=== PATIENT | female | born 1955 | race Caucasian/White ===

== ENCOUNTER 2024-11-01 13:13 | Outpatient (AMB) | payer MEDICARE, SELFPAY ==
--- NOTE | 2024-11-01 13:16 | A.SPINEOV_ITS ---
Intake Visit Reasons: LBP Intake Note: Ms. Estrella is here today c/o low back pain. [facility] done @ [facility] (brought disc). 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 HPI: This patient has a more than 15 years history of low back pain, bilateral hip pain with the left side is more affected than the right side. The pain radiates from the left hip down to the knee sometimes into the ankle. The symptoms started with back pain and eventually the left leg became involved with walking the symptoms used to be intermittent but now it is constant in varying degrees depending on what activities being performed. She can no longer walk or stand for prolonged period of time. She used to walk 2 miles a day now she can hardly make it to the mailbox before she has to sit down. Leaning forward also improves her symptoms. She had a MILD procedure done in the past without success. Besides the pain, she also has predominantly left-sided proximal leg weakness. Her DEXA scans have been negative for osteopenia or osteoporosis. She saw a spinal surgeon at [facility] who recommended an L4-S1 lumbar fusion. The following conservative treatment options were tried without success antiinflammatories, tylenol, physical therapy, and multiple cortisone shots. 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 . 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 Height 5'2 weight 208 lb. She walks in a flexed position. She is able to reproduce the pain after short period of standing in the office. Motor exam shows a grade 3/5 weakness of the iliopsoas on the left side and a grade 4/5 on the right side. Sensory exam is intact. Reflexes are symmetrically. No pathological reflexes. Gait is undisturbed. Radiological Studies: MRI done at [facility] on 07/03/2024 shows a grade 2 L4-5 spondylolisthesis with associated moderate central spinal stenosis. There is a disc extrusion causing left L4 foraminal stenosis and nerve compression. Finally, there is a left L5-S1 synovial cyst that touches the S1 nerve root. A dynamic x-ray of the lumbar spine shows grade 2 L4-5 spondylolisthesis and no abnormalities for the L5-S1 segment Impression/Plan: This patient is suffering from back pain and neurogenic claudication due to a grade 2 L4-5 spondylolisthesis with associated central spinal stenosis and foraminal stenosis. I do not think that the left synovial cyst is symptomatic. There are no signs of instability of the L5-S1 segment on flexion-extension x-rays and the MRI shows an excellent quality of the L5-S1 disc space. Therefore I would offer her a fusion of the L4-5 segment through an oblique lumbar interbody fusion but I would not include the L5-S1 segment for the above-mentioned reasons. She is tentatively scheduled for 12/19/2024. Thank you for allowing me to participate in your patients care. total time spent was 50 minutes in counseling ,coordination of plan, personal review of imaging, surgical decision making and subsequent plan Frankie Morley MD, PhD Spine Fellowship Trained Neurosurgeon Director, [facility] Orders: Orders XR lumbar spine 4V min Today M43.16 - Spondylolisthesis, lumbar region, M48.062 - Spinal stenosis, lumbar region with neurogenic claudication Coding Level of Care Code New Pt Level 4 (25042) Diagnoses Spondylolisthesis, lumbar region M43.16 Lumbar stenosis with neurogenic claudication M48.062
== END 2024-11-01 14:28 | disposition home or self-care (01) ==
LOC: HO.HNS 13:14
PROVIDERS: PCP Nurse Practitioner Family; Visit Provider Neurological Surgery
DX: M43.16 Spondylolisthesis, lumbar region (principal); M48.062 Spinal stenosis, lumbar region with neurogenic claudication
CPT/HCPCS: 99204

== ENCOUNTER 2024-11-01 13:13 | Outpatient (REF) | payer MEDICARE, SELFPAY ==
--- NOTE | ~2024-11-01 | XR_ITS ---
EXAMINATION: XR LUMBOSACRAL SPINE CLINICAL INFORMATION: M43.16 - Spondylolisthesis, lumbar region COMPARISON: None available. TECHNIQUE: Four views of the lumbosacral spine. FINDINGS: Mild scoliosis. Mildly exaggerated lumbar lordosis. Grade 1 retrolisthesis of L1 on L2 in the neutral position about 4 mm minimally worsens with flexion and extension to about 6 mm. Grade 1 anterolisthesis of L4 on L5 of 8 mm in the neutral position minimally worsens to 10 mm in flexion and extension. Grade 1 anterolisthesis of L5 on S1 of approximately 3 mm with flexion and extension. Moderate compression deformity of inferior endplate of L1 vertebral body, with approximately 50% loss of height. Small marginal osteophytes at multiple levels. Disc space narrowing at L4-L5, and a lesser degree at L1-L2. Sacroiliac joints are intact. XR/XR lumbar spine 4V min IMPRESSION: Minimal worsening of the listhesis at L1-L2, L4-L5 and L5-S1 with flexion/extension as described above. Electronically signed by: Leesa Shearer MD 11/01/2024 02:50 PM EDT
== END 2024-11-01 13:14 | disposition home or self-care (01) ==
LOC: HO.HOSX 13:13
PROVIDERS: PCP Nurse Practitioner Family; Visit Provider Neurological Surgery
DX: M43.16 Spondylolisthesis, lumbar region (principal); M48.062 Spinal stenosis, lumbar region with neurogenic claudication; M54.50 Low back pain, unspecified
CPT/HCPCS: 72110; 99202

== ENCOUNTER → 2024-11-01 13:52 | Outpatient (BNV) | payer MEDICARE, SELFPAY | PROVIDERS: PCP Nurse Practitioner Family; Visit Provider Radiology Body Imaging | DX: M43.16 Spondylolisthesis, lumbar region (principal) | CPT/HCPCS: 72110 ==

== ENCOUNTER → 2024-12-26 11:41 | Outpatient (BNV) | payer MEDICARE, SELFPAY | PROVIDERS: Admitting Provider Neurological Surgery; PCP Nurse Practitioner Family; Visit Provider Internal Medicine | DX: Z13.6 Encounter for screening for cardiovascular disorders (principal); Z01.810 Encounter for preprocedural cardiovascular examination | CPT/HCPCS: 93010 ==

== ENCOUNTER 2025-01-16 05:51 | Inpatient (IN) | payer MEDICARE, SELFPAY ==
--- NOTE | 2024-12-26 | ECG_ITS ---
Test Reason : preop Blood Pressure : */* mmHG Vent. Rate : 77 BPM Atrial Rate : 77 BPM P-R Int : 194 ms QRS Dur : 84 ms QT Int : 386 ms P-R-T Axes : 58 -22 33 degrees QTcB Int : 436 ms Normal sinus rhythm Normal ECG No previous ECGs available Referred By: Lacey Botello Electronically Signed By: ALLYSSA MCCORD
[2024-12-26 10:48] VITALS: BP 113/57; PULSE 77; RESP 16; O2SAT 97; BMI 40.8
--- NOTE | 2024-12-26 10:55 | HO.ANESPROP2 ---
Documented by User: Lacey Botello NP 01/15/25 08:59 HPI - Anesthesia Eval Consult details Narrative: 72 yr old female for L4-5 Oblique Lumbar Interbody Fusion scheduled for 01/16/25, seen in PAT 12/26/24 Medically optimized, low risk of perioperative cardiopulmonary complications at 12/27/24 visit. No recent illness. No CP or SOB with house work, but limited 2/2 back pain. Can have some SOB with carrying laundry basket upstairs that resolves quickly; feels she is deconditioned. SVT: experiences symptoms no more than once monthly that resolve quickly; does not follow with cardiology. On metoprolol. Asthma: well controlled, rare us of albuterol Type 2 DM: A1C 7.1% 10/2024 GERD: well controlled on H2 jenny [facility] Active Problems Active Problems: All Active Problems (Updated 12/26/24 @ 10:27 by Latanya Valle RN) Lumbar stenosis with neurogenic claudication (Acute) Spondylolisthesis, lumbar region (Acute) Past Medical History Medical History Obesity Atopic dermatitis Allergic rhinitis Spinal stenosis of lumbar region CKD (chronic kidney disease) stage 3, GFR 30-59 ml/min Restless leg syndrome Back pain Arthritis Anemia GERD (gastroesophageal reflux disease) Chronic renal insufficiency Weakness Cough On beta jenny at home SVT (supraventricular tachycardia) Hypercholesteremia Diabetes Asthma HTN (hypertension) Family History Family history of problems with anesthesia: No Surgical History Surgical History History of bladder suspension procedure Hx of carpal tunnel repair Hx of bilateral cataract extraction Hx of appendectomy History of epidural steroid injection into lumbar spine Hx of hysterectomy (~1995) Hx of ovarian cystectomy Hx of foot surgery H/O colonoscopy History of Problems with Anesthesia: No Social History Social History Are you a primary home care consultant to a significant other at home: No Do you presently have visiting nurse or other home services: No Patient Tobacco Use Status: Never used Tobacco Use of substances other than those prescribed or required for medical reasons: No Have you been hit, kicked, punched, or otherwise hurt by someone within the past year? If so, by whom?: No Are you DNR?: No Advance Directives: No Advance Directives Information Provided: No Advance Directives on File: No Patient : No : No Poor oral hygiene: Yes Meds Allergies Allergy/AdvReac Type Severity Reaction Status Date / Time acetaminophen (From Percocet) Allergy Insomnia Verified 12/25/24 12:34 cat dander (cats) Allergy Unknown Verified 12/26/24 10:47 diltiazem Allergy Vomiting Verified 12/26/24 10:45 grass pollen Allergy Unknown Verified 12/26/24 10:47 lisinopril Allergy Cough Verified 12/26/24 10:45 mite-Dermatophagoides Allergy Unknown Verified 12/26/24 10:47 farinae, emmanuel (dust mite - [place]) oxycodone (From Percocet) Allergy Insomnia Verified 12/25/24 12:34 pine nut Allergy Anaphylaxis Verified 12/26/24 10:47 sesame seed Allergy Anaphylaxis Verified 12/26/24 10:47 sunflower seed Allergy Anaphylaxis Verified 12/26/24 10:47 tree and shrub pollen Allergy Unknown Verified 12/26/24 10:47 Home Medications ?Medication ?Instructions ?Recorded ?Confirmed ?Last Taken ?Type albuterol sulfate 90 mcg/actuation 1 puff inhalation QID PRN 12/25/24 12/25/24 01/15/25 History aerosol inhaler (Ventolin HFA) Shortness Of Breath Or Wheezing aspirin 81 mg tablet,delayed 81 mg PO DAILY 12/25/24 12/25/24 01/08/25 History release duloxetine 60 mg capsule,delayed 60 mg PO DAILY 12/25/24 12/25/24 01/15/25 History release famotidine 40 mg tablet 40 mg PO DAILY 12/25/24 12/25/24 01/15/25 History ferrous sulfate 325 mg (65 mg 325 mg PO BEDTIME 12/25/24 12/26/24 01/13/25 History iron) tablet (iron) fluticasone 250 mcg-salmeterol 50 1 inh inhalation BID PRN Shortness 12/25/24 12/26/24 01/15/25 History mcg/dose blistr powdr for Of Breath inhalation (Advair Diskus) gabapentin 300 mg capsule 300 mg PO TID 12/25/24 12/25/24 01/15/25 History acetaminophen 500 mg tablet 1,000 mg PO Q6H PRN Pain 12/26/24 12/26/24 01/14/25 History ascorbic acid (vitamin C) 500 mg 500 mg PO DAILY 12/26/24 12/26/24 01/15/25 History tablet (Vitamin C) cholecalciferol (vitamin D3) 25 25 mcg PO BEDTIME 12/26/24 12/26/24 01/15/25 History mcg (1,000 unit) tablet (Vitamin D3) fluticasone propionate 50 1 spray intranasal BID PRN Allergy 12/26/24 12/26/24 01/15/25 History mcg/actuation nasal Symptoms spray,suspension ipratropium bromide 21 mcg (0.03 2 spray intranasal BID PRN Allergy 12/26/24 12/26/24 01/15/25 History %) nasal spray Symptoms irbesartan 150 1 tab PO DAILY 12/26/24 12/26/24 01/15/25 History mg-hydrochlorothiazide 12.5 mg tablet magnesium oxide 400 mg PO BEDTIME 12/26/24 12/26/24 01/15/25 History metformin 500 mg tablet,extended 500 mg PO QPM 12/26/24 12/26/24 01/15/25 History release 24 hr metoprolol succinate 25 mg 25 mg PO BEDTIME 12/26/24 12/26/24 01/15/25 History tablet,extended release 24 hr montelukast 10 mg tablet 10 mg PO BEDTIME 12/26/24 12/26/24 01/15/25 History pravastatin 40 mg tablet 40 mg PO BEDTIME 12/26/24 12/26/24 01/15/25 History gabapentin 100 mg capsule 100 mg PO TID PRN Pain 01/16/25 01/16/25 Unknown History Exam Height,Weight and Vital Signs: Height 5 ft 1 in Weight 98.066 kg Last Vital Signs Pulse 77 12/26/24 10:48 Resp 16 12/26/24 10:48 BP 113/57 L 12/26/24 10:48 Pulse Ox 97 12/26/24 10:48 O2 Del Method Room Air 12/26/24 10:48 Pertinent Lab Results Pertinent Lab Results: Labs done at [facility] 10/2024 A1C CBC Glucose: 113 BUN: 31 Creat 1.3 GFR 43.1 Sodium 141 Potassium 4.9 Calcium 9.4 Narrative Narrative: EKG 12/26/24 Vent. Rate : 77 BPM Atrial Rate : 77 BPM P-R Int : 194 ms QRS Dur : 84 ms QT Int : 386 ms P-R-T Axes : 58 -22 33 degrees QTcB Int : 436 ms Normal sinus rhythm Normal ECG No previous ECGs available Airway Mallampati Class: III TM Dist: >3cm Neck ROM: Full Loose/Missing/Broken Teeth: No Heart: RRR Lungs: CTAB Assessment and Plan Final Anesthetic Review Family History of Problems with Anesthesia: No History of Problems with Anesthesia: No Documented by User: Olvin Landon MD 01/16/25 13:30 [facility] Past Medical History Medical History Obesity Atopic dermatitis Allergic rhinitis Spinal stenosis of lumbar region CKD (chronic kidney disease) stage 3, GFR 30-59 ml/min Restless leg syndrome Back pain Arthritis Anemia GERD (gastroesophageal reflux disease) Chronic renal insufficiency Weakness Cough On beta jenny at home SVT (supraventricular tachycardia) Hypercholesteremia Diabetes Asthma HTN (hypertension) Surgical History Surgical History History of bladder suspension procedure Hx of carpal tunnel repair Hx of bilateral cataract extraction Hx of appendectomy History of epidural steroid injection into lumbar spine Hx of hysterectomy (~1995) Hx of ovarian cystectomy Hx of foot surgery H/O colonoscopy Social History Social History Are you a primary home care consultant to a significant other at home: No Do you presently have visiting nurse or other home services: No Patient Tobacco Use Status: Never used Tobacco Use of substances other than those prescribed or required for medical reasons: No Have you been hit, kicked, punched, or otherwise hurt by someone within the past year? If so, by whom?: No Are you DNR?: No Advance Directives: No Advance Directives Information Provided: No Advance Directives on File: No Patient : No : No Poor oral hygiene: Yes Meds Allergies Allergy/AdvReac Type Severity Reaction Status Date / Time acetaminophen (From Percocet) Allergy Insomnia Verified 12/25/24 12:34 cat dander (cats) Allergy Unknown Verified 12/26/24 10:47 diltiazem Allergy Vomiting Verified 12/26/24 10:45 grass pollen Allergy Unknown Verified 12/26/24 10:47 lisinopril Allergy Cough Verified 12/26/24 10:45 mite-Dermatophagoides Allergy Unknown Verified 12/26/24 10:47 farinae, emmanuel (dust mite - [place]) oxycodone (From Percocet) Allergy Insomnia Verified 12/25/24 12:34 pine nut Allergy Anaphylaxis Verified 12/26/24 10:47 sesame seed Allergy Anaphylaxis Verified 12/26/24 10:47 sunflower seed Allergy Anaphylaxis Verified 12/26/24 10:47 tree and shrub pollen Allergy Unknown Verified 12/26/24 10:47 Home Medications ?Medication ?Instructions ?Recorded ?Confirmed ?Last Taken ?Type albuterol sulfate 90 mcg/actuation 1 puff inhalation QID PRN 12/25/24 12/25/24 01/15/25 History aerosol inhaler (Ventolin HFA) Shortness Of Breath Or Wheezing aspirin 81 mg tablet,delayed 81 mg PO DAILY 12/25/24 12/25/24 01/08/25 History release duloxetine 60 mg capsule,delayed 60 mg PO DAILY 12/25/24 12/25/24 01/15/25 History release famotidine 40 mg tablet 40 mg PO DAILY 12/25/24 12/25/24 01/15/25 History ferrous sulfate 325 mg (65 mg 325 mg PO BEDTIME 12/25/24 12/26/24 01/13/25 History iron) tablet (iron) fluticasone 250 mcg-salmeterol 50 1 inh inhalation BID PRN Shortness 12/25/24 12/26/24 01/15/25 History mcg/dose blistr powdr for Of Breath inhalation (Advair Diskus) gabapentin 300 mg capsule 300 mg PO TID 12/25/24 12/25/24 01/15/25 History acetaminophen 500 mg tablet 1,000 mg PO Q6H PRN Pain 12/26/24 12/26/24 01/14/25 History ascorbic acid (vitamin C) 500 mg 500 mg PO DAILY 12/26/24 12/26/24 01/15/25 History tablet (Vitamin C) cholecalciferol (vitamin D3) 25 25 mcg PO BEDTIME 12/26/24 12/26/24 01/15/25 History mcg (1,000 unit) tablet (Vitamin D3) fluticasone propionate 50 1 spray intranasal BID PRN Allergy 12/26/24 12/26/24 01/15/25 History mcg/actuation nasal Symptoms spray,suspension ipratropium bromide 21 mcg (0.03 2 spray intranasal BID PRN Allergy 12/26/24 12/26/24 01/15/25 History %) nasal spray Symptoms irbesartan 150 1 tab PO DAILY 12/26/24 12/26/24 01/15/25 History mg-hydrochlorothiazide 12.5 mg tablet magnesium oxide 400 mg PO BEDTIME 12/26/24 12/26/24 01/15/25 History metformin 500 mg tablet,extended 500 mg PO QPM 12/26/24 12/26/24 01/15/25 History release 24 hr metoprolol succinate 25 mg 25 mg PO BEDTIME 12/26/24 12/26/24 01/15/25 History tablet,extended release 24 hr montelukast 10 mg tablet 10 mg PO BEDTIME 12/26/24 12/26/24 01/15/25 History pravastatin 40 mg tablet 40 mg PO BEDTIME 12/26/24 12/26/24 01/15/25 History gabapentin 100 mg capsule 100 mg PO TID PRN Pain 01/16/25 01/16/25 Unknown History Assessment and Plan Assessment Anesthesia Assessment: Anesthesia Plan Discussed and Chart Reviewed Final Anesthetic Review NPO: Yes ASA Class: III Final Preanesthetic Review: No Changes in Pt Med Stat, Meds/Allgs Chart Reviewed, Consent Obtained/Reviewed and Anes Risks/Benef Reviewed Patient Risk: Intermediate Procedure Risk: Low Anesthetic Plan Anesthetic Plan: GA Disposition: Standard PACU
[2025-01-16] VITALS (19 sets, daily range): BP systolic 92–122; BP diastolic 42–74; PULSE 79–106; RESP 12–20; TEMP 35.7–36.9; O2SAT 92–97; BMI 41.2
--- NOTE | ~2025-01-16 | FL_ITS ---
EXAMINATION: FL GUIDANCE ONLY HISTORY: L4-5 OLIF COMPARISON: Correlation is made to plain films of the lumbar spine dated 11/01/2024. TECHNIQUE: Fluoroscopy time: 1 minute, 53 seconds. Cumulative Dose: 126.82 mGy. DAP: 40.454 Gycm2 Images: 5. FINDINGS: Fluoroscopic spot films of the lumbar spine demonstrate posterior fusion of L4 and L5 with pedicle screws, spinal stabilization rods, and an intervertebral spacer. FL/FL guidance in OR IMPRESSION: Fluoroscopy during procedure. Please see procedure report for additional information. Electronically signed by: Ramy Cheung MD 01/16/2025 10:29 AM EDT
[2025-01-16] MEDS: Lactated Ringers 1,000 ML 100 ML IVCONT (06:21)
--- OUTSIDE RECORDS SUMMARY | 2025-01-16 06:25 | XMS_ITS | Clinical Summary ---
Author Organization [facility] Address [address] [place] [id number] Phone Care Team Providers Care Data Programmer Name Role Phone Jess Callahan Primary Care Provider [phone] Allergies Active Allergy Reactions Criticality Noted Date Comments Diltiazem Nausea Only 06/22/2024 N/V Cardizem Lisinopril Cough 06/22/2024 cough Oxycodone-Acetaminoph en Insomnia,Other (See Comments) Low 06/22/2024 acetaminophen / oxycodone [place] Nut Anaphylaxis High 07/26/2017 Seeds Unknown 06/22/2024 Sesame Seed Anaphylaxis High 07/26/2017 [place] Seed Anaphylaxis High 07/26/2017 Medications methylPREDNISolon e (MEDROL DOSEPACK) 4 mg tabletIndications :Lumbar radiculopathy follow package directions 21 tablet Active Additional Information Patient not taking.Reported on 07/26/2024 DULoxetine (CYMBALTA) 60 MG capsule TAKE 1 CAPSULE BY MOUTH DAILY DIRECTED Active gabapentin (NEURONTIN) 300 MG capsule Take 1 capsule by mouth nightly at bedtime. Active aspirin 81 MG EC tablet Take 81 mg by mouth daily. Active cetirizine (ZYRTEC) 10 MG tablet Take 10 mg by mouth daily. Active cholecalciferol (VITAMIN D3) 2,000 unit capsule Take 2,000 Units by mouth daily. Active famotidine (PEPCID) 40 MG tablet Take 1 tablet by mouth daily. 5 Active ferrous sulfate (IRON) 325 mg (65 mg [place] iron) tablet Take 325 mg by mouth every other day. Active fluticasone propion-salmetero L (ADVAIR DISKUS) 250-50 mcg/dose DISKUS Inhale 250 mcg/actuation of fluticasone into the lungs 2 (two) times a day. 4 Active irbesartan-hydroC HLOROthiazide (AVALIDE) 150-12.5 mg per tablet Take 1 tablet by mouth daily. 2 Active loratadine (CLARITIN) 10 mg tablet Take 10 mg by mouth daily. Active magnesium glycinate 200 mg magnesium capsule Take 200 mg by mouth daily with dinner. Active metFORMIN (GLUCOPHAGE-XR) 500 MG 24 hr tablet Take 1 tablet by mouth daily. 5 Active metoprolol succinate (TOPROL-XL) 25 MG 24 hr tablet Take 25 mg by mouth daily. Active montelukast (SINGULAIR) 10 mg tablet Take 1 tablet by mouth daily. 5 Active [id number]- fish oil (FISH OIL) 120 mg-180 mg- 60 mg-1,200 mg CpDR Active pravastatin (PRAVACHOL) 40 MG tablet Take 1 tablet by mouth daily. 5 Active Active Problems Problem Noted Date Diagnosed Date Asthma 06/22/2024 Type 2 diabetes mellitus 09/17/2022 Overview (06/22/2024): Two HgA1cs 08/2022 7.2 and 7.4 Started on Metformin Benign essential hypertension 02/20/2019 Rheumatoid arthritis 02/06/2008 Social History Tobacco Use Types Packs/Day Years Used Date Smoking Tobacco: Never Smokeless Tobacco: Never Tobacco Cessation:Counseling Given: Not Answered Child or Family Care Answer Date Record ed Do you have problems with on e of the following making it difficult for you to work, study, or receive health care? No 07/20/2024 Education Answer Date Recorded Are you interested in more education? Not on nury e 11/24/2022 Are you concerned about learning? Not on file 11/24/2022 No 11/24/2022 No 11/24/2022 Food Answer Date Recorded Within the past 6 months we worried whether our food would run out before we got money to buy more. Never True 07/20/2024 Within the past 6 months the food we bought just didn't last and we didn't have enough money to get more. Never True Residential Stability Answer Date Recor ded What is your housing situation today? I have radha sing 07/20/2024 How many times have you move d in the past 12 months? Zero (I did not move) 07/20/2024 Paying for Meds Answer Date Recorded Do you have trouble paying for medicines? No 07/20/2024 Paying Utility Bills Answer Date Record ed Do you have trouble paying your heating or elect ricity bill? No 07/20/2024 Transportation Answer Date Recorded Has the lack of transportati on kept you from medical appointments or from getting medications? No 07/20/2024 Digital Access Answer Date Recorded No 07/20/2024 Yes 07/20/2024 Do you have reliable internet access at home? Ye s 07/20/2024 Do you have a device (e.g., phone, tablet, computer) with a working camera? Yes 07/20/2024 Comments No Sex and Gender Information Value Date Recorded Sex Assigned at Female 06/13/2024 3:47 PM EDT Legal Sex Female 2:51 PM EDT Gender Identity Female 06/13/2024 3:47 PM EDT Sexual Orientation Bisexual 06/13/2024 3: 47 PM EDT Last Filed Vital Signs Vital Sign Reading Time Taken Comments Blood Pressure 120/56 07/26/2024 10:43 AM EDT Pulse 85 07/26/2024 10:43 AM EDT Temperature 36.4 C (97.6 F) 07/26/2024 10:44 AM EDT Respiratory Rate 16 07/26/2024 10:39 AM EDT Oxygen Saturation 97% 07/26/2024 10:43 AM EDT Inhaled Oxygen Concentration - - Weight 96.6 kg (213 lb) 07/26/2024 10:39 AM EDT Height 157.5 cm (5' 2 ) 07/26/2024 10:39 AM EDT Body Mass Index 38.96 07/26/2024 10:39 AM EDT Plan of Treatment Health Maintenance Due Date Last Done Comments CREATININE LEVEL 07/30/1950 HEMOGLOBIN A1C 07/30/1950 POTASSIUM LEVEL 07/30/1950 HEPATITIS C SCREENING 07/30/1968 MAMMOGRAM 07/30/1990 COLOGUARD 07/31/1995 COLONOSCOPY 07/31/1995 COLORECTAL CANCER SCREENING 07/31/1995 FIT TEST 07/31/1995 FOBT 07/31/1995 SIGMOIDOSCOPY 07/31/1995 VIRTUAL COLONOSCOPY 07/31/1995 OSTEOPOROSIS SCREENING INITIAL (ONE-TIME) 07/31/2015 DIABETIC EYE EXAM 06/22/2024 INFLUENZA VACCINE (#1) 2024 , 11/28/2022, 01/06/2022, Additional history exists COVID-19 VACCINE ( season) 2024 12/23/2023, 12/23/2023, 02/04/2023, Additional history exists BLOOD PRESSURE 01/25/2025 07/26/2024 DEPRESSION SCREENING 07/20/2025 07/20/2024 Adult Td,Tdap Booster 12/24/2026 12/24/2016 , 07/29/2016, 04/28/2006 HEPATITIS A VACCINES Aged Out 09/02/2017, 12/08/19 17 No longer eligible based on patient's age to complete this topic ZOSTER VACCINES Completed 03/07/2020, 10/27, 05/28/2019, Additional history exists PNEUMOCOCCAL VACCINES (50+ years) Completed 03/11/2021, 07/29/2016, 02/01/2012 RSV VACCINE Completed 03/11/2023 SMOKING STATUS SCREENING (Once After 26 Yrs) Completed 07/26/2024 HIB VACCINES Aged Out No longer eligi ble based on patient's age to complete this topic MENINGOCOCCAL VACCINES (ACWY) Aged Out No longer eligible based on patient's age to complete this topic MENINGOCOCCAL VACCINES (B) Aged Out N o longer eligible based on patient's age to complete this topic Medical Devices Not on file Insurance MEDICARE PART A & B [employer] MEDEX SUPPLEMENT MEDICARE PART A & B BLUE CROSS MEDEX SUPPLEMENT MEDICARE PART A & B [email or web address] CROSS MEDEX SUPPLEMENT MEDICARE PART A & B [employer] MEDEX SUPPLEMENT MEDICARE PART A & B [employer] MEDEX SUPPLEMENT MEDICARE PART A & B Care Teams Data Programmer Relationship Specialty Start Date End Date Jess Callahan PA [address] [place] [id number] PCP - General Physician Boiler Tender 11/24/22 Additional Source Comments The information contained in this document represents components of the legal health record. It is not the complete legal health record.[facility]
--- OUTSIDE RECORDS SUMMARY | 2025-01-16 06:25 | XMS_ITS | Encounter Summary ---
Author Organization [facility] Address [address] [place] [id number] Phone Care Team Providers Care Print Color Operator Name Role Phone Jess Callahan Primary Care Provider [phone] Encounter Details Date Type Department Care Team (Late st Contact Info) Description 11/24/2022 Procedure Pass Non-Invasive Cardiology [address] [place] [address] Social History Tobacco Use Types Packs/Day Years Used Date Smoking Tobacco: Never Assessed Education Answer Date Recorded Are you interested in more education? Not on nury e 11/24/2022 Are you concerned about learning? Not on file 11/24/2022 No 11/24/2022 No 11/24/2022 Digital Access Answer Date Recorded No 11/24/2022 No 11/24/2022 Reliable internet access at home? Not on file 11/24/2022 Device with a working camera? Not on file Comments Unknown Sex and Gender Information Value Date Recorded Sex Assigned at Female 06/13/2024 3:47 PM EDT Legal Sex Female 2:51 PM EDT Gender Identity Female 06/13/2024 3:47 PM EDT Sexual Orientation Bisexual 06/13/2024 3: 47 PM EDT documented as of this encounter Plan of Treatment Not on file documented as of this encounter Visit Diagnoses Not on filedocumented in this encounter Care Teams Print Color Operator Relationship Specialty Start Date End Date Jess Callahan PA [address] [place] [id number] PCP - General Physician Deputy Clerk Of Court 11/24/22 documented as of this encounter Additional Source Comments The information contained in this document represents components of the legal health record. It is not the complete legal health record.[facility]
--- OUTSIDE RECORDS SUMMARY | 2025-01-16 06:25 | XMS_ITS | Encounter Summary ---
Author Organization [facility] Address [address] [place] [address] [place] [phone] Phone Care Team Providers Care Acoustic Intelligence Specialist Name Role Phone Jess Callahan Primary Care Provider [phone] Encounter Details Date Type Department Care Team (Late st Contact Info) Description 06/22/2024 Procedure Pass [facility], [address] [place] [address] Social History Tobacco Use Types Packs/Day Years [...] a working camera? Not on file Comments No Sex and Gender Information Value [...] on filedocumented in this encounter Care Teams Acoustic Intelligence Specialist Relationship Specialty Start Date End Date Jess Callahan PA [address] [place] [phone] PCP - General Physician Welt Rougher 11/24/22 documented as of this encounter Additional Source Comments The information contained in this document represents components of the legal health record. It is not the complete legal health record.[facility]
[2025-01-16 06:27] LABS: Glucose, Whole Blood 131 mg/dL (60-115)
[2025-01-16] MEDS: Albuterol Sulfate (0.083%) 2.5 MG/3 ML VIAL.NEB INHALE (06:42)
--- NOTE | 2025-01-16 06:42 | PC.NURSE ---
wheezing after activities while getting undresses resp tx given no sob noted patient sts normal for her
--- NOTE | 2025-01-16 06:46 | P.HPSUR_ITS ---
Pre-Procedural Eval Section A - 24 Hr Update-Section A only Date of Service: 01/16/25 The patient is an INPATIENT: Yes Section B - Complete if H&P > 30 days Chief Complaint: Spinal stenosis, lumbar region with neurogenic Details of Present Illness: Bilateral leg pain and back pain Allergies: Allergies Allergy/AdvReac Type Severity Reaction Status Date / Time acetaminophen (From Percocet) Allergy Insomnia Verified 12/25/24 12:34 cat dander (cats) Allergy Unknown Verified 12/26/24 10:47 diltiazem Allergy Vomiting Verified 12/26/24 10:45 grass pollen Allergy Unknown Verified 12/26/24 10:47 lisinopril Allergy Cough Verified 12/26/24 10:45 mite-Dermatophagoides Allergy Unknown Verified 12/26/24 10:47 farinae, emmanuel (dust mite - [place]) oxycodone (From Percocet) Allergy Insomnia Verified 12/25/24 12:34 pine nut Allergy Anaphylaxis Verified 12/26/24 10:47 sesame seed Allergy Anaphylaxis Verified 12/26/24 10:47 sunflower seed Allergy Anaphylaxis Verified 12/26/24 10:47 tree and shrub pollen Allergy Unknown Verified 12/26/24 10:47 Review of Systems Sugical H&P ROS: Negative: Constitution, Cardiovascular, Respiratory, Neurological, Psychiatric, Hem-Onc, Allergic/Immunologic, Gastrointestinal, Genitourinary, Musculoskeletal, Integumentary, Endocrine and Eyes/Ears/Nose/Throat Exam Surgical H&P Exam: Normal: HEENT, Normal: Heart, Normal: Lungs, Normal: Extremities, Normal: Abdomen, Normal: Skin and Normal: Neurological (Wake, alert) Plan Diagnosis/Plan: Unchanged I have reviewed the history and physical and performed a pertinent physical examination on my patient. No changes have occurred unless specified. Oblique lumbar interbody fusion L4-5 Time Spent With Patient Time: Total time managing care of this patient today ___5_ minutes.
--- NOTE | 2025-01-16 09:54 | W.PM.OPN ---
Operative Note Operative Note Date of Service: 01/16/25 Narrative: Preop Diagnosis: 1.) Lumbar spondylolisthesis 2.) Neurogenic claudication and back pain Procedure: 1) L4-5 discectomy, arthrodesis and implantation cage through an anterolateral, retroperitoneal approach 2) L4-5 posterior instrumented fusion 3) allograft 4) Injection of 10 cc of Exparel at the transverse process for a muscular erector spinae block and additional Exparel in paravertebral tissue for postop management Consent Informed Consent was obtained for this operation. I have explained the nature, purpose and benefits of the operation. I have discussed the risks and benefit of the operation including possible complications or adverse events with patient/family. Alternative(s) were discussed with the patient with their relative benefits and risks as well as the consequences of not accepting the operation were included in obtaining consent. Surgeon: BREANNA CALL MD, PHD Procedure Assisted By: martir Chirinos Description of Procedure This 72-year-old female suffering from back pain and neurogenic claudication due to an grade 2 L4-5 spondylolisthesis with associated central stenosis. The patient was offered an oblique lumbar interbody fusion L4-5. The procedure and complications were explained. The patient was consented. The patient was brought to the operating room and endotracheally intubated. The patient was turned in a lateral position with the left side up. Prep and drape was done followed by timeout. A small incision was made in the left lower abdominal quadrant. The muscle fascia was opened after which the 3 muscle layer was split to enter the retroperitoneal space. Dilators were docked in the anterior one third of the L4-5 disc space followed by a retractor. The retractor was opened. The L4-5 disc space was exposed. An annulotomy was done after which an elevator Cabrera was used to release the disc material from its endplates and to perforate the contralateral side. A partial discectomy was done. An 8 mm height trial implant was inserted. The discectomy was completed. The endplates were prepared. An 10 x 45 mm with sick degree lordosis 4 web cage filled with allograft was inserted into the disc space under fluoroscopic guidance. This resulted in correction of the spondylolisthesis. The retractor was removed. Hemostasis was done. The incision was closed in 2 layers. Steri-Strips used to approximate incision. An OpSite with Tegaderm was used to cover the incision. This marked first part of the procedure. The patient was turned prone on the Ti spine table. 2C arms were installed for fluoroscopy. Prep and drape was done followed by a second timeout. Injection of 10 cc of Exparel at the bilateral L4 transverse processi for a muscular erector spinae block. Two paramedian incisions were made lateral from the L4 and L5 pedicles. The muscle fascia was opened after which the muscle layer was split bluntly to expose the posterolateral gutter. The following steps were taken. A pediguard tap was used to create a transpedicular trajectory into the vertebral body. A K wire was placed. A specially designed instrument was advanced over the K wire to decorticate the posterolateral gutter in preparation for the posterolateral fusion. A pedicle screw was advanced over the K wire and the K wire was removed. The steps were done for the bilateral L4 and L5 pedicles. A total of 4 screws were placed with a diameter of 6.5 x 40 mm. Pedicle screws were connected with 45 mm tony bilaterally and locked down with locking caps. The extension towers were removed. The posterolateral gutter was filled with allograft to complete the posterolateral L4-5 fusion Hemostasis was done and the incision was closed in 2 layers. Steri-Strips were used to approximate the incision. An OpSite with tegaderm was used to cover the incision. All sponge and needle counts were correct. Patient was extubated and transferred in stable is to recovery room. This procedure was done with the aid of physician temporary office assistant, who participated in placement of the pedicle screws, interpretation of x-rays, placement of allograft and closure of the incisions. Anesthesia: General Estimated Blood Loss (ml): 30 Duration of Surgery: 2 hours Complications: None Postoperative Plan: Admit to inpatient for clinical observation
--- NOTE | 2025-01-16 10:25 | PC.NURSE ---
PCT attempted to ambulate patient to bathroom, patient became tachycardic in 140's, tachypneic 24 and increased work of breathing, complaining of SOB but able to talk in complete sentences, spO2 - 86%. Patient returned to bed. Patient placed on 2L and encouraged to take slow breaths. Patient recovered, RR 20, HR 90, 95% 2L. Provider Rodrigo notified via [employer].
--- NOTE | 2025-01-16 12:40 | PC.NURSE ---
Patient arrived to unit from PACU - up to bed side commode with 2 A, patient tolerated well. Patient was unable to void - bladder scan performed as last void time unknown.
[2025-01-16 12:42] LABS: Glucose, Whole Blood 167 mg/dL (60-115)
--- NOTE | 2025-01-16 12:46 | PHA.MEDREC ---
Pharmacy Consult ? Medication Reconciliation Pharmacy has reviewed the medication reconciliation done by nursing. Also spoke to patient to confirm med list. Patient confirmed she is taking advair PRN sob, and she takes gabapentin 300 mg tid + additional 100 mg tid prn.
[2025-01-16 15:45] LABS: Glucose, Whole Blood 201 mg/dL (60-115)
[2025-01-16] MEDS: oxyCODONE HCl Immed Release 5 MG TABLET PO (18:49)
[2025-01-16] MEDS: Ferrous Sulfate 324 MG TABLET.DR PO (21:06)
[2025-01-16] MEDS: Metoprolol Succinate ER 25 MG TAB.ER.24H PO (21:06)
[2025-01-16 21:16] LABS: Glucose, Whole Blood 233 mg/dL (60-115)
[2025-01-17 03:13] VITALS: BP 106/56; PULSE 75; RESP 17; TEMP 35.9; O2SAT 93
--- NOTE | 2025-01-17 05:23 | PM.EVENT ---
Event Note Date of Service: 01/17/25 Event Note: pt reported itching after taking dialaudid, added 1x dose of benadryl. no visible rash or respiratory difficulties. held further dilaudid. Time Spent With Patient Time: Total time managing care of this patient today ____ minutes.
[2025-01-17 06:47] VITALS: BP 98/52; PULSE 89; RESP 16; TEMP 36.6; O2SAT 96
[2025-01-17] MEDS: oxyCODONE HCl Immed Release 5 MG TABLET 10 MG PO ×2 (07:09→10:57)
[2025-01-17 07:10] LABS: Glucose, Whole Blood 138 mg/dL (60-115)
--- NOTE | 2025-01-17 07:43 | HO.NEUROPN_ITS ---
Neurosurgery Operative Note Date of Service: 01/17/25 Narrative: POD: 1 Procedure: L4-5 OLIF Grecia is a pleasant 72-year-old female who underwent L4-[address] Morley yesterday. She was doing very well in the immediate postoperative period, walking around her room and reporting minimal pain. She reports that overnight she had some exacerbations of her low back pain, and states that she has some right-sided thigh pain as well. She is otherwise doing well. She has been up out of bed walking around her room into the bathroom. She is voiding well and tolerating her current diet. Afebrile, vital signs stable. No new neurological deficits. The patient has about 4/5 strength with right- sided iliopsoas testing. The rest of her lower extremity strength is 5/5. Her back and anterolateral dressings are dry with minimal staining. No evidence of hematoma. Claude 72-year-old female who underwent L4-[address] Morley yesterday. We would like to see her work with physical therapy today, and hopefully her overall pain/status will improve throughout the day. We are tentatively planning for discharge home later today.
[2025-01-17 08:50] LABS: Creatinine Clr Calc Pharmacy 35.9; Estimated Glomerular Filt Rate 34
--- NOTE | 2025-01-17 08:56 | HO.POSTANES ---
Post Anesthesia Evaluation Post Anesthesia Evaluation Date of Service: 01/17/25 Vital Signs: Vital Signs Temp Pulse Resp BP Pulse Ox O2 Del Method 01/17/25 06:47 98 F 89 16 98/52 L 96 Room Air 01/17/25 03:13 96.7 F L 75 17 106/56 L 93 Room Air 01/16/25 23:47 96.9 F 92 18 112/59 L 93 Room Air 01/16/25 21:00 20 01/16/25 21:00 103 H 101/51 L Anesthesia: General Mental Status: Awake Pain Control: Satisfactory Nausea/Vomiting: None Hydration: Adequate Anesthesia-Related Issues: No Anes. Related Issues
--- NOTE | 2025-01-17 09:33 | PM.DS ---
DS: Providers Provider Date of Service: 01/17/25 Date of admission: 01/16/25 05:51 Date of discharge: 01/17/25 Primary care physician: Jocelnye Pugh NP DS: Summary Time Attestation Discharge Coordination Time (in mins): 13 Quality: Safe Use of Opioids Does Pt have an Active Cancer Diagnosis on the Problem List?: No Quality: Stroke Does the patient have a stroke diagnosis?: No Physical Exam Vital Signs: Vital Signs: Last Vital Signs Temp 98 F 01/17/25 06:47 Pulse 89 01/17/25 06:47 Resp 16 01/17/25 06:47 BP 98/52 L 01/17/25 06:47 Pulse Ox 96 01/17/25 06:47 O2 Del Method Room Air 01/17/25 06:47 O2 Flow Rate 2 01/16/25 15:56 BMI result Body Mass Index 41.2 DS: Data Data Completed and Pending Labs on day of discharge: Laboratory Results - last 24 hr 01/16/25 01/16/25 01/16/25 12:35 15:41 21:11 Hold Purple Top Creatinine Estim Creat Clear Calc Estimated GFR POC Glucose 167 H 201 H 233 H 01/17/25 01/17/25 06:50 08:30 Hold Purple Top SEE NOTE Creatinine 1.48 H Estim Creat Clear Calc 35.9 Estimated GFR 34 POC Glucose 138 H Discharge Plan Discharge Anticipated Discharge Date/Time: 01/17/25 09:34 Patient Disposition: Home, Self-Care Discharge Diagnosis: s/p L4-5 OLIF Referrals: Jocelyne Pugh NP [Primary Care Provider, [facility]] - 1 Week Discharge Medications: New oxycodone 5 mg tablet See Rx Instructions .ROUTE .COMPLEX PRN (Reason: pain) Qty: 30 0RF Rx Instructions: Take 1-2 tablets by mouth every 4 hours; Partial Fill upon patient request. docusate sodium 100 mg capsule 100 mg PO BID PRN (Reason: constipation) Qty: 14 0RF Continued famotidine 40 mg tablet 40 mg PO DAILY ferrous sulfate [iron] 325 mg (65 mg iron) Tablet 325 mg PO BEDTIME gabapentin 300 mg capsule 300 mg PO TID duloxetine 60 mg capsule,delayed release(DR/EC) 60 mg PO DAILY fluticasone propion-salmeterol [Advair Diskus] 250-50 mcg/dose Blister With Device 1 inh INHALATION BID PRN (Reason: Shortness Of Breath) albuterol sulfate [Ventolin HFA] 90 mcg/actuation Hfa Aerosol Inhaler 1 puff INHALATION QID PRN (Reason: Shortness Of Breath Or Wheezing) irbesartan-hydrochlorothiazide 150-12.5 mg tablet 1 tab PO DAILY pravastatin 40 mg tablet 40 mg PO BEDTIME ascorbic acid (vitamin C) [Vitamin C] 500 mg Tablet 500 mg PO DAILY montelukast 10 mg tablet 10 mg PO BEDTIME metoprolol succinate 25 mg tablet extended release 24 hr 25 mg PO BEDTIME fluticasone propionate 50 mcg/actuation Paradise,Suspension 1 spray INTRANASAL BID PRN (Reason: Allergy Symptoms) Rx Instructions: administer into each nostril metformin 500 mg tablet extended release 24 hr 500 mg PO QPM ipratropium bromide 21 mcg (0.03 %) Paradise,Non-Aerosol 2 spray INTRANASAL BID PRN (Reason: Allergy Symptoms) Rx Instructions: administer into each nostril cholecalciferol (vitamin D3) [Vitamin D3] 25 mcg (1,000 unit) Tablet 25 mcg PO BEDTIME magnesium oxide 400 mg magnesium Tablet 400 mg PO BEDTIME acetaminophen 500 mg Tablet 1,000 mg PO Q6H PRN (Reason: Pain) gabapentin 100 mg capsule 100 mg PO TID PRN (Reason: Pain) Held aspirin 81 mg Tablet,Delayed Release (Dr/Ec) 81 mg PO DAILY Hold Instructions: Resume on 01/19/25. Discharge Orders: Discharge Order (Routine); Ordered 01/17/25 Ordered By: Jefferson Joaquin Diet: Advance to usual diet Activity on Discharge: As tolerated Stand Alone Forms: Patient Portal Discharge page Print Language: Niuean Activity Restrictions/Additional Instructions: After your spinal surgery we ask you to observe the following restrictions/guidelines: Activity: It is normal to feel some discomfort as you increase your activity, but that will improve with time. We ask you avoid heavy lifting or activities that cause pain. As a general rule, 8lbs is a safe limit for lifting right after surgery. Walk as much as you feel comfortable but not to exhaustion. You will feel extra tired the first few days after surgery. Stay well hydrated. It is OK to walk up and down stairs You may return to driving when you are off narcotics (such as vicodin, oxycodone, dilaudid, etc), and you are back to normal functional capacity. If you have any concerns please check with office before driving. Return to work is specific to each patient and each surgery, so please speak with your doctor/PA at first follow up. Please bring paperwork such as FMLA at that time if you need it filled out. Medications: We recommend you take 500mg Tylenol every 4 hours for the first week after surgery, if you do not have any liver issues and can tolerate this medication. Do not exceed 4,000mg daily. We also recommend you take Ibuprofen 600mg every 8 hours for the first week after surgery starting on post op day 1, ?if you do not have any kidney or sugar control issues and can tolerate this medication. Do not exceed 2,000mg daily. We will give you a short supply of narcotics after surgery (usually one weeks worth). If you need more please call the office but do not use more than prescribed. You will need to give our office 48 hours notice if you need narcotics refilled and we do not fill narcotics on weekends or evenings. If you are on a narcotic, it is a good idea to take a stool softener such as colace or senna to avoid constipation If you take blood thinner such as aspirin, Plavix, Coumadin, Effient, Eliquis etc for conditions such as Afib, DVT, Pulmonary embolus, coronary disease, stents etc please speak with your surgeon about specific details as to when you can resume these medications. You can resume NSAIDs on post op day 1 (eg: Motrin, Naproxen, etc). Follow up: Please call the office, , after surgery to arrange a 3 week follow up for wound check. Wound Care: You may remove your dressing on the first day after surgery. ?You may ?leave open to air. Please do not remove the steri strips underneath. they will fall off on their own in one week. IT IS NORMAL FOR THE WOUND TO OOZE OR BE BLOODY FOR A FEW DAYS AFTER SURGERY. ?IF THIS HAPPENS JUST PLACE NEW DRESSING OVER IT TO AVOID STAINING CLOTHES. You may shower on post op day # 1 We ask that you do not let the water soak the wound. If it does get wet, just towel dry lightly. Please do not scrub your incision or place any type of chemical/ointment on the wound. No tub baths, pools or jacuzzis for one month. If you have any leaking or redness from your wound, or fevers, please call the office. Care Plan Goals: Return to normal activity as tolerated Health Concerns: None Plan of Treatment: Follow-up in clinic in 2-3 weeks. Assessment: POD: 1 Procedure: L4-5 OLIF Grecia is a pleasant 72-year-old female who underwent L4-[address] Morley yesterday. She was doing very well in the immediate postoperative period, walking around her room and reporting minimal pain. She reports that overnight she had some exacerbations of her low back pain, and states that she has some right-sided thigh pain as well. She is otherwise doing well. She has been up out of bed walking around her room into the bathroom. She is voiding well and tolerating her current diet. Afebrile, vital signs stable. No new neurological deficits. The patient has about 4/5 strength with right-sided iliopsoas testing. The rest of her lower extremity strength is 5/5. Her back and anterolateral dressings are dry with minimal staining. No evidence of hematoma. Claude 72-year-old female who underwent L4-[address] Morley yesterday. We would like to see her work with physical therapy today, and hopefully her overall pain/status will improve throughout the day. We are tentatively planning for discharge home later today.
--- NOTE | 2025-01-17 10:44 | MHC.CM.PN ---
pt lives with family has own ride home will need a vna when dcd pt has had overlok in the past
[2025-01-17 11:15] LABS: Glucose, Whole Blood 143 mg/dL (60-115)
--- NOTE | 2025-01-17 11:35 | MHC.CM.PN ---
pt dcd home with [facility]
--- NOTE | 2025-01-17 12:05 | MHC.CM.PN ---
pt home with [facility]
--- NOTE | 2025-01-17 13:40 | P.F2F_ITS ---
Service Date Service Date: 01/17/25 Encounter Date of encounter: 01/17/25 Reasons for Services Signs and symptoms assessed: s/p L4-5 lumbar fusion Reason for physical therapy: home safety and mobility, restore joint function, gait/transfer training and ADL training Homebound: Leaving the home is medically contraindicated at this time without the asist of a device and/or another person due th the listed conditions above and below. Reason homebound: unsteady gait / fall risk, leg weakness, pain with ambulation and weakness related to hospital stay Certification: Based on the above findings, I certify that this patient is confined to the home and needs intermittent chcf care, physical therapy and/or speech therapy, or continues to need occupational therapy. The patient is under my care, and I have initiated the establishment of the plan of care. The patient will be followed by a physician who will periodically review the plan of care. Time Spent With Patient Time: Total time managing care of this patient today __7__ minutes.
== END 2025-01-17 12:19 | disposition home health service (06) | DRG 451 ==
LOC: HO.SSSA 06:23 → HO.S3 11:22
PROVIDERS: Neurological Surgery; Admitting Provider Physician Assistant; PCP Nurse Practitioner Family; Visit Provider Physician Assistant
PROC: 0SG00A0 Fusion of Lumbar Vertebral Joint with Interbody Fusion Device, Anterior Approach, Anterior Column, Open Approach (ICD-10-PCS; principal; 2025-01-16 07:30)
DX: M43.16 Spondylolisthesis, lumbar region (principal); E11.9 Type 2 diabetes mellitus without complications; M48.062 Spinal stenosis, lumbar region with neurogenic claudication; Z79.84 Long term (current) use of oral hypoglycemic drugs; Z79.899 Other long term (current) drug therapy
CPT/HCPCS: 36415; 82565; 82947; 86850; 86900; 86901; 93005; 97162; 97530; C1713; C1889; J0131; J0665; J0666; J0690; J1100; J1171; J1200; J2003; J2250; J2371; J2405; J2704; J3010; L8699

== ENCOUNTER → 2025-01-16 05:51 | Outpatient (BNV) | payer MEDICARE, SELFPAY | PROVIDERS: Admitting Provider Physician Assistant; PCP Nurse Practitioner Family; Visit Provider Neurological Surgery | DX: Z48.89 Encounter for other specified surgical aftercare (principal); M43.16 Spondylolisthesis, lumbar region; M48.062 Spinal stenosis, lumbar region with neurogenic claudication | CPT/HCPCS: 20930; 22558; 22612; 22840; 22853; 64450; 99024; 99499; G0180 ==

== ENCOUNTER 2025-02-05 08:34 | Outpatient (REF) | payer MEDICARE, SELFPAY ==
--- NOTE | ~2025-02-05 | XR_ITS ---
EXAMINATION: XR LUMBOSACRAL SPINE CLINICAL INFORMATION: M43.16 - Spondylolisthesis, lumbar region COMPARISON: November 01, 2024 TECHNIQUE: Lateral views in neutral, flexion and extension position. AP view. FINDINGS: Transpedicular screws at L4 and L5, bilaterally. Intervertebral body disc spacer placement at L4-5. Grade 1 anterolisthesis L4-5 8 neutral position which persists during flexion and extension position. Superior endplate sclerotic compression deformity at L1. Grade 1 retrolisthesis L1-2. No motion during flexion and or extension position. Multilevel marginal osteophyte formation and endplate sclerosis throughout the axial skeleton, lower thoracic spine. No lytic or blastic lesions. Vascular calcifications. S-shaped curvature of the thoracolumbar spine. XR/XR lumbar spine 4V min IMPRESSION: Status post posterior lumbar fusion and intervertebral body disc spacer arthrodesis at L4-5 with a stable grade 1 anterolisthesis and instability. Old inferior endplate compression deformity at L1. Grade 1 retrolisthesis L1-2 without instability. Electronically signed by: Michael Yepez MD 02/05/2025 02:27 PM EST
--- OUTSIDE RECORDS SUMMARY | 2025-02-06 08:44 | XMS_ITS | Encounter Summary ---
Author Organization [facility] Address [address] [place] [address] Phone Care Team Providers Care Electroplater Name Role Phone Jess Callahna Primary Care Provider [phone] Encounter Details Date Type Department Care Team (Late st Contact Info) Description 11/24/2022 Procedure Pass Non-Invasive Cardiology [address] [place] [address] Social History Tobacco Use Types Packs/Day Years [...] on filedocumented in this encounter Care Teams Electroplater Relationship Specialty Start Date End Date Jess Callahan PA [address] [place] [address] PCP - General Physician Bricklayer 11/24/22 documented as of this encounter Additional Source Comments The information contained in this document represents components of the legal health record. It is not the complete legal health record.[facility]
--- OUTSIDE RECORDS SUMMARY | 2025-02-06 08:45 | XMS_ITS | Clinical Summary ---
Author Organization [facility] Address [address] [place] [address] Phone Care Team Providers Care Office Professional Name Role Phone Jess Callahan Primary Care Provider [phone] Allergies Active Allergy Reactions Criticality Noted Date Comments Diltiazem Nausea Only 06/22/2024 N/V Cardizem Lisinopril Cough 06/22/2024 cough Oxycodone-Acetaminoph en Insomnia,Other (See Comments) Low 06/22/2024 acetaminophen / oxycodone [place] Nut Anaphylaxis High 07/26/2017 Seeds Unknown 06/22/2024 Sesame Seed Anaphylaxis High 07/26/2017 Cherry Seed Anaphylaxis High 07/26/2017 Medications methylPREDNISolon e [...] ferrous sulfate (IRON) 325 mg (65 mg agdaagux iron) tablet Take 325 mg by mouth [...] 1 tablet by mouth daily. 5 Active fxdgm-5v-bin-epa- fish oil (FISH OIL) 120 mg-180 mg- [...] MEDEX SUPPLEMENT MEDICARE PART A & B [employer] CROSS MEDEX SUPPLEMENT MEDICARE PART A & B [employer] CROSS MEDEX SUPPLEMENT MEDICARE PART A & B Path MEDEX SUPPLEMENT MEDICARE PART A & B Path MEDEX SUPPLEMENT MEDICARE PART A & B Care Teams Office Professional Relationship Specialty Start Date End Date Jess Callahan PA [address] [place] [id number] PCP - General Physician Separating Machine Operator 11/24/22 Additional Source Comments The information contained in this document represents components of the legal health record. It is not the complete legal health record.[facility]
--- OUTSIDE RECORDS SUMMARY | 2025-02-06 08:45 | XMS_ITS | Encounter Summary ---
Author Organization [facility] Address [address] [place] [address] [place] [address] Phone Care Team Providers Care Site Technician Name Role Phone Jess Callahan Primary Care Provider [phone] Encounter Details Date Type Department Care Team (Late st Contact Info) Description 06/22/2024 Procedure Pass [facility], [address] [place] [address] Social History Tobacco Use Types Packs/Day Years [...] on filedocumented in this encounter Care Teams Site Technician Relationship Specialty Start Date End Date Jess Callahan PA [address] [place] [id number] PCP - General Physician Faculty Criminal Justice 11/24/22 documented as of this encounter Additional Source Comments The information contained in this document represents components of the legal health record. It is not the complete legal health record.[facility]
== END 2025-02-05 08:35 | disposition home or self-care (01) ==
LOC: HO.HOSX 08:34
PROVIDERS: Visit Provider Physician Assistant
DX: Z13.89 Encounter for screening for other disorder (principal)
CPT/HCPCS: 72110; 99212

== ENCOUNTER 2025-02-05 13:29 | Outpatient (AMB) | payer MEDICARE, SELFPAY ==
--- NOTE | 2025-02-05 13:31 | A.SPINEOV_ITS ---
Intake Visit Reasons: 1st post op Intake Note: Ms. Estrella is here today for her 1st post op. Allergies acetaminophen (From Percocet) Allergy (Verified 12/25/24 12:34) Insomnia cat dander (cats) Allergy (Verified 12/26/24 10:47) Unknown diltiazem Allergy (Verified 12/26/24 10:45) Vomiting grass pollen Allergy (Verified 12/26/24 10:47) Unknown lisinopril Allergy (Verified 12/26/24 10:45) Cough mite-Dermatophagoides farinae, emmanuel (dust mite - [place]) Allergy (Ve rified 12/26/24 10:47) Unknown oxycodone (From Percocet) Allergy (Verified 12/25/24 12:34) Insomnia pine nut Allergy (Verified 12/26/24 10:47) Anaphylaxis sesame seed Allergy (Verified 12/26/24 10:47) Anaphylaxis sunflower seed Allergy (Verified 12/26/24 10:47) Anaphylaxis tree and shrub pollen Allergy (Verified 12/26/24 10:47) Unknown Assessment & Plan Assessment & Plan (1) 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 Morley on 01/16/2025. She has had a somewhat complicated postoperative course and presented to the ED in [place] due to left leg swelling and pain after surgery. She states her left leg pain began a few days after surgery. They were able to obtain ultrasound imaging and ruled out deep vein thrombosis. Due to her consistent left leg pain she was advised by JAYDA Reardon to attempt to increase her gabapentin dose up from 300 mg 3 times a day but she was unable to tolerate this, so she is back at her original dose. She called the clinic last week requesting a course of prednisone, which JAYDA Reardon sent in for her. She reports some good improvement of her pain today (currently taking Medrol dosepa ck) and has been able to get outside and walk daily despite the pain. Today she walked for 8 minutes outdoors. We ordered a set of dynamic lumbar spine x-rays for her to obtain during this visit. We subsequently reviewed her X-rays together which show subsidence of the interbody cage at L4-5. When compared to flouroscopy images it appears that the spondylolisthesis that was corrected is now present once more. On examination the patient has 4/5 strength with left-sided iliopsoas testing, however the rest of her strength is 5/5. She ambulates well with a non spastic nonantalgic gait, and uses no assistive devices to ambulate. She reports no sensational deficits to light touch when comparing her left and right lower extremities. Her lateral and posterior incision sites are closed and well healing with no signs of drainage. Pleasant 72 year old female who comes in today for her fist postoperative appointment after having L4-[address] Morley on 01/16/2025. Her postoperative course has been somewhat complicated by fairly significant left leg pain that began a few days after surgery. X-ray imaging today shows subsidence of the interbody cage at L4-5. Dr. Morley reviewed the patient's x-ray imaging from today, and we discussed ordering an MRI to evaluate for nerve compression as a result of the subsidence. We will review her MRI results when they are available and make further recommendations regarding her care thereafter. She may need a brace but likely will not need revision surgery. 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
--- OUTSIDE RECORDS SUMMARY | 2025-02-05 15:35 | XMS_ITS | Encounter Summary ---
Author Organization [facility] Address [address] [place] [address] [place] [address] Phone Care Team Providers Care Pneumatic Tube Fitter Name Role Phone Jess Callahan Primary Care Provider [phone] Encounter Details Date Type Department Care Team (Late st Contact Info) Description 06/22/2024 Procedure Pass [facility], [address] [place] [address] Social History Tobacco Use Types Packs/Day Years [...] on filedocumented in this encounter Care Teams Pneumatic Tube Fitter Relationship Specialty Start Date End Date Jess Callahan PA [address] [place] [address] PCP - General Physician Health Workers 11/24/22 documented as of this encounter Additional Source Comments The information contained in this document represents components of the legal health record. It is not the complete legal health record.[facility]
--- OUTSIDE RECORDS SUMMARY | 2025-02-05 15:35 | XMS_ITS | Encounter Summary ---
Author Organization [facility] Address [address] [place] [address] Phone Care Team Providers Care Networking Administrator Name Role Phone Jess Callahan Primary Care Provider [phone] Encounter Details Date Type Department Care Team (Late st Contact Info) Description 11/24/2022 Procedure Pass Non-Invasive Cardiology [address] [place] [address] Social History Tobacco Use Types Packs/Day Years [...] on filedocumented in this encounter Care Teams Networking Administrator Relationship Specialty Start Date End Date Jess Callahan PA [address] [place] [address] PCP - General Physician Cutter In 11/24/22 documented as of this encounter Additional Source Comments The information contained in this document represents components of the legal health record. It is not the complete legal health record.[facility]
--- OUTSIDE RECORDS SUMMARY | 2025-02-05 15:35 | XMS_ITS | Clinical Summary ---
Author Organization [facility] Address [address] [place] [address] Phone Care Team Providers Care Group Director Name Role Phone Jess Callahan Primary Care Provider [phone] Allergies Active Allergy Reactions Criticality Noted Date Comments Diltiazem Nausea Only 06/22/2024 N/V Cardizem Lisinopril Cough 06/22/2024 cough Oxycodone-Acetaminoph en Insomnia,Other (See Comments) Low 06/22/2024 acetaminophen / oxycodone [place] Nut Anaphylaxis High 07/26/2017 Seeds Unknown 06/22/2024 Sesame Seed Anaphylaxis High 07/26/2017 [place] Seed Anaphylaxis High 07/26/2017 Medications methylPREDNISolon e [...] ferrous sulfate (IRON) 325 mg (65 mg [employer] [place] iron) tablet Take 325 mg by mouth [...] 1 tablet by mouth daily. 5 Active mxfbh-3x-foq-epa- fish oil (FISH OIL) 120 mg-180 mg- [...] on patient's age to complete this topic IPV VACCINES Aged Out No longer eligi ble based on patient's age to complete this topic MENINGOCOCCAL VACCINES (ACWY) Aged Out No longer eligible based on patient's age to complete this topic MENINGOCOCCAL VACCINES (B) Aged Out N o longer eligible based on patient's age to complete this topic Medical Devices Not on file Insurance MEDEX SUPPLEMENT MEDICARE PART A & B MEDEX SUPPLEMENT MEDICARE PART A & B Major [employer]ide CROSS MEDEX SUPPLEMENT MEDICARE PART A & B Major Aide CROSS MEDEX SUPPLEMENT MEDICARE PART A & B [employer] MEDEX SUPPLEMENT MEDICARE PART A & B [employer] MEDEX SUPPLEMENT MEDICARE PART A & B Care Teams Group Director Relationship Specialty Start Date End Date Jess Callahan PA [address] [place] [phone] PCP - General Physician Stores Clerk 11/24/22 Additional Source Comments The information contained in this document represents components of the legal health record. It is not the complete legal health record.[facility]
== END 2025-02-05 14:19 | disposition home or self-care (01) ==
LOC: HO.HNS 13:30
PROVIDERS: PCP Nurse Practitioner Family; Visit Provider Physician Assistant
DX: T84.216A Breakdown (mechanical) of internal fixation device of vertebrae, initial encounter (principal)
CPT/HCPCS: 99024

== ENCOUNTER → 2025-02-05 13:38 | Outpatient (BNV) | payer MEDICARE, SELFPAY | PROVIDERS: Visit Provider Radiology Diagnostic Radiology | DX: M43.16 Spondylolisthesis, lumbar region (principal); Z98.1 Arthrodesis status | CPT/HCPCS: 72110 ==

== ENCOUNTER 2025-02-05 19:19 | Outpatient (REF) | payer MEDICARE, SELFPAY ==
--- NOTE | ~2025-02-05 | MR_ITS ---
CLINICAL HISTORY: T84.216A - Breakdown (mechanical) of internal fixation device of vertebra...Patient has subsidence of interbody cage at L4-5, severe leg pain, need to evaluate for nerve compression Exam: Nonenhanced MRI lumbar spine. Comparison: Radiographs performed the same day. Findings: Susceptibility artifact related to posterior fusion hardware and intervertebral spacer at L4-5 level are re-identified. Remote appearing anterior compression deformity at L1, with loss of roughly 20 or 30% vertebral body height anteriorly is present. No significant bone marrow edema to suggest acute fracture. Remaining vertebral body heights are maintained. There is stable 5 mm anterolisthesis L4 on L5. There is retropulsion of the posterior cortex at the level of the inferior endplate of T12 by proximally 4 mm (measured on 5; 9). There is some slight disc space narrowing at L1-L2. Remaining intervertebral disc heights appear maintained. Conus medullaris terminates at L1-L2 level. Axial images reveal the following: L1-2: Retropulsion of the posterior cortex of the inferior endplate of L1 as described above. No resultant significant spinal stenoses. No significant appearing foraminal stenoses. L2-3: Slight disc bulging is present. No significant spinal or foraminal stenoses. L3-4: Slight diffuse disc bulging is present. No significant spinal or foraminal stenoses. L4-5: Remote postoperative changes and grade 1 anterolisthesis L4 on L5 as described above. No focal disc herniation or spinal stenoses. No foraminal stenoses. L5-S1: No focal disc herniation, spinal or foraminal compromise. No definable MR evidence of hardware failure is appreciated. Impression: 1. Remote changes related to posterior fusion at L4-5 level, without MR evidence of hardware failure. 2. Remote compression deformity at L1 as described above. 3. No significant focal disc herniation or evidence of significant spinal or foraminal stenoses. This document has been electronically signed by: Raf Howell MD on 02/05/2025 20:18:39
== END 2025-02-05 19:20 | disposition home or self-care (01) ==
LOC: HO.MRI 19:19
PROVIDERS: Visit Provider Physician Assistant
DX: T84.216A Breakdown (mechanical) of internal fixation device of vertebrae, initial encounter (principal)
CPT/HCPCS: 72110; 72148; 99212

== ENCOUNTER 2025-02-21 14:54 | Outpatient (AMB) | payer MEDICARE, SELFPAY ==
--- NOTE | 2025-02-21 15:24 | A.SPINEOV_ITS ---
Intake Visit Reasons: severe pain after surgery Intake Note: Ms. Estrella is here today c/o severe pain after surgery. Credit And Collections Representative Required: No Allergies acetaminophen (From Percocet) Allergy (Verified 12/25/24 12:34) Insomnia cat dander (cats) Allergy (Verified 12/26/24 10:47) Unknown diltiazem Allergy (Verified 12/26/24 10:45) Vomiting grass pollen Allergy (Verified 12/26/24 10:47) Unknown lisinopril Allergy (Verified 12/26/24 10:45) Cough mite-Dermatophagoides farinae, emmanuel (dust mite - [place]) Allergy (Verified 12/26/24 10:47) Unknown oxycodone (From Percocet) Allergy (Verified 12/25/24 12:34) Insomnia pine nut Allergy (Verified 12/26/24 10:47) Anaphylaxis sesame seed Allergy (Verified 12/26/24 10:47) Anaphylaxis sunflower seed Allergy (Verified 12/26/24 10:47) Anaphylaxis tree and shrub pollen Allergy (Verified 12/26/24 10:47) Unknown Assessment & Plan Assessment & Plan (1) 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 She underwent a minimally invasive oblique lumbar interbody fusion to address L4-5 spondylolisthesis with neurogenic claudication symptoms on 01/16/2025. Initially, her symptoms completely disappeared but this changed a few weeks after surgery when she acutely developed severe back pain left leg pain. Imaging reviewed hardware failure with subsidence of the implant and a return of the spondylolisthesis that initially was corrected intraoperatively. An MRI did not show any nerve compression. We recommended a bone stimulator with the patient's the pain 1000 dollars [id number], which may be too much for her. A repeat x-ray today was compared to x-rays of February 05 and shows that the spondylolisthesis is stable. She is scheduled to undergo a hiatal hernia repair on March 27 at [facility]. She will have a follow-up with us on March 19 during which another set of x-rays will be obtained to assess the status of the spondylolisthesis. She will also bring a CT abdomen that was recently done for us to assess if there is halo formation around the pedicle screws. The hope is that her spine will fuse over time which may take months. A further progression of the spondylolisthesis would automatically translate in a revision surgery. Revision surgery would be difficult as she is clearly suffering from osteopenia/osteoporosis based on the subsidence that occurred. Thank you for allowing me take care of your patient. 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
--- OUTSIDE RECORDS SUMMARY | 2025-02-21 17:33 | XMS_ITS | Encounter Summary ---
Author Organization [facility] Address [address] [place] [address] [place] [address] Phone Care Team Providers Care Oil Sales And Service Rep Name Role Phone Jess Callahan Primary Care Provider [phone] Encounter Details Date Type Department Care Team (Late st Contact Info) Description 06/22/2024 Procedure Pass [facility], [address] [place] [address] Social History Tobacco Use Types Packs/Day Years [...] on filedocumented in this encounter Care Teams Oil Sales And Service Rep Relationship Specialty Start Date End Date Jess Callahan PA [address] [place] [phone] PCP - General Physician Molder Inflated Ball 11/24/22 documented as of this encounter Additional Source Comments The information contained in this document represents components of the legal health record. It is not the complete legal health record.[facility]
--- OUTSIDE RECORDS SUMMARY | 2025-02-21 17:33 | XMS_ITS | Clinical Summary ---
Author Organization [facility] Address [address] [place] [address] Phone Care Team Providers Care Fork Repairer Name Role Phone Jess Callahan Primary Care Provider [phone] Allergies Active Allergy Reactions Criticality Noted Date Comments Diltiazem Nausea Only 06/22/2024 N/V Cardizem Lisinopril Cough 06/22/2024 cough Oxycodone-Acetaminoph en Insomnia,Other (See Comments) Low 06/22/2024 acetaminophen / oxycodone [place] Nut Anaphylaxis High 07/26/2017 Seeds Unknown 06/22/2024 Sesame Seed Anaphylaxis High 07/26/2017 [place] Seed Anaphylaxis High 07/26/2017 Medications methylPREDNISolon e [...] ferrous sulfate (IRON) 325 mg ([address] michael ira iron) tablet Take 325 mg by mouth [...] 1 tablet by mouth daily. 5 Active poddw-7z-cri-epa- fish oil (FISH OIL) 120 mg-180 mg- [...] file Insurance MEDICARE PART A & B [employer] MEDEX SUPPLEMENT MEDICARE PART A & B BLUE CROSS MEDEX SUPPLEMENT MEDICARE PART A & B [employer] CROSS MEDEX SUPPLEMENT MEDICARE PART A & B [employer] MEDEX SUPPLEMENT MEDICARE PART A & B [employer] MEDEX SUPPLEMENT MEDICARE PART A & B Care Teams Fork Repairer Relationship Specialty Start Date End Date Jess Callahan PA [address] [place] [phone] PCP - General Physician Nonprofit Fundraiser 11/24/22 Additional Source Comments The information contained in this document represents components of the legal health record. It is not the complete legal health record.[facility]
--- OUTSIDE RECORDS SUMMARY | 2025-02-21 17:33 | XMS_ITS | Encounter Summary ---
Author Organization [facility] Address [address] [place] [address] Phone Care Team Providers Care Grain Operations Manager Name Role Phone Jess Callahan Primary Care Provider [phone] Encounter Details Date Type Department Care Team (Late st Contact Info) Description 11/24/2022 Procedure Pass Non-Invasive Cardiology [address] [place] [address] Social History Tobacco Use Types Packs/Day Years [...] on filedocumented in this encounter Care Teams Grain Operations Manager Relationship Specialty Start Date End Date Jess Callahan PA [address] [place] [address] PCP - General Physician E Tailer 11/24/22 documented as of this encounter Additional Source Comments The information contained in this document represents components of the legal health record. It is not the complete legal health record.[facility]
== END 2025-02-21 16:19 | disposition home or self-care (01) ==
LOC: HO.HNS 14:55
PROVIDERS: Visit Provider Neurological Surgery
DX: T84.216A Breakdown (mechanical) of internal fixation device of vertebrae, initial encounter (principal)
CPT/HCPCS: 99024

== ENCOUNTER 2025-02-21 14:54 | Outpatient (REF) | payer MEDICARE, SELFPAY ==
--- NOTE | ~2025-02-21 | XR_ITS ---
Exam: CR Xr Lumbar Spine 4v Min Technique AP, and lateral: Flexion, neutral, and extension view x-rays of the lumbar spine. Prior: 02/05/2025 CLINICAL HISTORY: T84.216A - Breakdown (mechanical) of internal fixation device of vertebrae...Patient has subsidence of interbody cage at L4-5 FINDINGS: There are 5 non-rib bearing lumbar segments. Moderate inferior endplate fracture of L1 is stable. T12-L1: Unremarkable L1-L2: There is mild loss of disc height and grade 1 retrolisthesis, no instability. L2-L3: There is mild loss disc height without instability L3-L4: There is mild loss disc height without instability L4-L5: Posterior lumbar interbody fusion has been performed with screws and rods are There is interbody spacer without subsidence into the superior endplate of L5 similar to the prior. The interbody spacer sits proud of the anterior margin of L5 by 5 mm, similar to the prior. On the frontal view, the interbody spacer minimally projects lateral to the interbody space. There is grade 1 anterolisthesis that does not significant change during flexion and extension. L5-S1: Unremarkable XR/XR lumbar spine 4V min IMPRESSION: Stable postoperative changes related to PLIF at L4-5 with subsidence of interbody spacer into the L5 vertebral body. Disc spacer sits proud of the anterior L5 vertebral body by 5 mm. It also likely extends lateral to the interbody space on the left side, but this area is obscured by hardware. Stable moderate inferior endplate compression fracture of L1. Electronically signed by: Gerardo Russ MD 02/21/2025 04:24 PM [facility]
== END 2025-02-21 14:55 | disposition home or self-care (01) ==
LOC: HO.HOSX 14:54
PROVIDERS: Visit Provider Neurological Surgery
DX: Z47.89 Encounter for other orthopedic aftercare (principal); T84.216A Breakdown (mechanical) of internal fixation device of vertebrae, initial encounter
CPT/HCPCS: 72110; 99212

== ENCOUNTER → 2025-02-21 15:53 | Outpatient (BNV) | payer MEDICARE, SELFPAY | PROVIDERS: Visit Provider Radiology Diagnostic Radiology | DX: T84.216A Breakdown (mechanical) of internal fixation device of vertebrae, initial encounter (principal); S32.010A Wedge compression fracture of first lumbar vertebra, initial encounter for closed fracture | CPT/HCPCS: 72110 ==

== ENCOUNTER 2025-03-19 11:08 | Outpatient (REF) | payer MEDICARE, SELFPAY ==
--- NOTE | ~2025-03-19 | XR_ITS ---
EXAMINATION: XR LUMBAR SPINE 4 OR MORE VIEWS HISTORY: M43.16 - Spondylolisthesis, lumbar region COMPARISON: Comparison is made with the prior examination dated 02/21/2025. FINDINGS: AP, and neutral, flexion, and extension lateral views of the lumbar spine are submitted. Osseous mineralization is normal. The patient is status post posterior fusion of L4 and L5 with pedicle screws, spinal stabilization rods, and an intervertebral spacer. There is moderate loss of height of L1 without change. Again seen is spondylolisthesis of L4 on L5 measuring 9 mm in neutral, flexion, and extension positions. There is moderate degenerative disc disease of the upper lumbar spine, with disc space narrowing and osteophyte formation. The visualized paraspinal soft tissues are unremarkable. XR/XR lumbar spine 4V min IMPRESSION: 1. Status post posterior fusion of L4 and L5. 2. Spondylolisthesis of L4 on L5 without change with flexion or extension. 3. Moderate chronic compression deformity of L1. Electronically signed by: Ramy Cheung MD 03/19/2025 03:53 PM [facility]
== END 2025-03-19 11:09 | disposition home or self-care (01) ==
LOC: HO.HOSX 11:08
PROVIDERS: Visit Provider Physician Assistant
DX: M43.16 Spondylolisthesis, lumbar region (principal)
CPT/HCPCS: 72110; 99212

== ENCOUNTER 2025-03-19 11:08 | Outpatient (AMB) | payer MEDICARE, SELFPAY ==
--- NOTE | 2025-03-19 11:51 | A.SPINEOV_ITS ---
Intake Visit Reasons: 2nd post op Intake Note: Ms. Estrella is here today for her 2nd post op. Counselor/Art Therapist Required: No Allergies acetaminophen (From Percocet) Allergy (Verified 03/19/25 11:52) Insomnia cat dander (cats) Allergy (Verified 03/19/25 11:52) Unknown diltiazem Allergy (Verified 03/19/25 11:52) Vomiting grass pollen Allergy (Verified 03/19/25 11:52) Unknown lisinopril Allergy (Verified 03/19/25 11:52) Cough mite-Dermatophagoides farinae, emmanuel (dust mite - [place]) Allergy (Verified 03/19/25 11:52) Unknown oxycodone (From Percocet) Allergy (Verified 03/19/25 11:52) Insomnia pine nut Allergy (Verified 03/19/25 11:52) Anaphylaxis sesame seed Allergy (Verified 03/19/25 11:52) Anaphylaxis sunflower seed Allergy (Verified 03/19/25 11:52) Anaphylaxis tree and shrub pollen Allergy (Verified 03/19/25 11:52) Unknown Assessment & Plan Assessment & Plan (1) Spondylolisthesis, lumbar region: Code(s): M43.16 - Spondylolisthesis, lumbar region Category: Medical Plan Grecia is a pleasant 72 year old female who comes in today in follow up. To recap she underwent a minimally invasive oblique lumbar interbody fusion to address L4-5 spondylolisthesis with neurogenic claudication symptoms on 01/16/2025. Initially, her symptoms completely disappeared but this changed a few weeks after surgery when she acutely developed severe back pain left leg pain. Imaging reviewed hardware failure with subsidence of the implant and a return of the spondylolisthesis that initially was corrected intraoperatively. See previous office visit notes for specifics regarding this issue. She brought in a series of CT scan images from [facility] in [place], which can only be viewed via disc extraction hardware. I utilized the disc extraction hardware that Dr. Morley has to extract over 1500 images, in an attempt to review the lumbar spine which was captured during her CT abdomen and pelvis to evaluate for any halo effect or pseudoarthrosis. It appears that her surgical hardware is intact. No obvious evidence of halo effect around screws or translation of interbody spacer. Locking caps in place. Rods in place. I would like to send Grecia for a set of Lumabr spine X-rays as she did not have them complete before her visit today. I will review them before the end of the day today to ensure there is no notable change compared to previous XR imaging. When Dr. Morley returns from vacation I will review this CT scan imaging again with him, alongside her x-rays, and we will also discuss the plan going forward. The patient did express interest in potentially obtaining an injection the surgical site as a way of mitigating her pain as it is still fairly severe in the low back. I will discuss this with him as well. Jefferson Morley MD,PhD [facility] Orders: Orders XR lumbar spine 4V min Today M43.16 - Spondylolisthesis, lumbar region Coding Level of Care Code Global (95131) Diagnoses Spondylolisthesis, lumbar region M43.16
--- OUTSIDE RECORDS SUMMARY | 2025-03-19 14:12 | XMS_ITS | Encounter Summary ---
Author Organization [facility] Address [address] [place] [address] [place] [address] Phone Care Team Providers Care Miller Head Wet Process Name Role Phone Jess Callahan Primary Care Provider [phone] Encounter Details Date Type Department Care Team (Late st Contact Info) Description 06/22/2024 Procedure Pass [facility], [address] [place] [address] Social History Tobacco Use Types Packs/Day Years [...] on filedocumented in this encounter Care Teams Miller Head Wet Process Relationship Specialty Start Date End Date Jess Callahan PA [address] [place] [id number] PCP - General Physician Installation Helper 11/24/22 documented as of this encounter Additional Source Comments The information contained in this document represents components of the legal health record. It is not the complete legal health record.[facility]
--- OUTSIDE RECORDS SUMMARY | 2025-03-19 14:12 | XMS_ITS | Encounter Summary ---
Author Organization [facility] Address [address] [place] [id number] Phone Care Team Providers Care Organizational Research Consultant Name Role Phone Jess Callahan Primary Care Provider [phone] Encounter Details Date Type Department Care Team (Late st Contact Info) Description 11/24/2022 Procedure Pass [facility] Non-Invasive Cardiology [address] [place] [address] Social History Tobacco Use Types Packs/Day Years [...] on filedocumented in this encounter Care Teams Organizational Research Consultant Relationship Specialty Start Date End Date Jess Callahan PA [address] [place] [phone] PCP - General Physician World Geography Teacher 11/24/22 documented as of this encounter Additional Source Comments The information contained in this document represents components of the legal health record. It is not the complete legal health record.[facility]
--- OUTSIDE RECORDS SUMMARY | 2025-03-19 14:12 | XMS_ITS | Clinical Summary ---
Author Organization [facility] Address [address] [place] [address] Phone Care Team Providers Care Filer Metal Patterns Name Role Phone Jess Callahan Primary Care Provider [phone] Allergies Active Allergy Reactions Criticality Noted Date Comments Diltiazem Nausea Only 06/22/2024 N/V Cardizem Lisinopril Cough 06/22/2024 cough Oxycodone-Acetaminoph en Insomnia,Other (See Comments) Low 06/22/2024 acetaminophen / oxycodone [place] Nut Anaphylaxis High 07/26/2017 Seeds Unknown 06/22/2024 Sesame Seed Anaphylaxis High 07/26/2017 Boyle Seed Anaphylaxis High 07/26/2017 Medications methylPREDNISolon e [...] ferrous sulfate (IRON) 325 mg (65 mg [place] iron) tablet Take 325 mg by mouth [...] 1 tablet by mouth daily. 5 Active [id number]- fish oil (FISH OIL) 120 mg-180 mg- [...] file Insurance MEDICARE PART A & B Disability Care Givers MEDEX SUPPLEMENT MEDICARE PART A & B BLUE CROSS MEDEX SUPPLEMENT MEDICARE PART A & B [employer] CROSS MEDEX SUPPLEMENT MEDICARE PART A & B Disability Care Givers MEDEX SUPPLEMENT MEDICARE PART A & B Disability Care Givers MEDEX SUPPLEMENT MEDICARE PART A & B Care Teams Filer Metal Patterns Relationship Specialty Start Date End Date Jess Callahan PA [address] [place] [address] PCP - General Physician Gps Navigation Installer 11/24/22 Additional Source Comments The information contained in this document represents components of the legal health record. It is not the complete legal health record.[facility]
== END 2025-03-19 13:07 | disposition home or self-care (01) ==
LOC: HO.HNS 11:09
PROVIDERS: Visit Provider Physician Assistant
DX: M43.16 Spondylolisthesis, lumbar region (principal)
CPT/HCPCS: 99024

== ENCOUNTER → 2025-03-19 12:37 | Outpatient (BNV) | payer MEDICARE, SELFPAY | PROVIDERS: Visit Provider Radiology Diagnostic Radiology | DX: M43.16 Spondylolisthesis, lumbar region (principal); M43.9 Deforming dorsopathy, unspecified; Z98.1 Arthrodesis status | CPT/HCPCS: 72110 ==